=== PATIENT | female | born 1985 | race Caucasian/White ===

== ENCOUNTER → 2019-05-23 | Outpatient (CLI) | payer OTHER | LOC: OD 08:11 | PROVIDERS: ATTEND Nurse Practitioner Primary Care | DX: N97.9 Female infertility, unspecified (principal) | CPT/HCPCS: 36415; 82670; 84144 ==

== ENCOUNTER → 2019-05-27 | Outpatient (CLI) | payer OTHER | LOC: OD 08:55 | PROVIDERS: ATTEND Nurse Practitioner Primary Care | DX: N97.9 Female infertility, unspecified (principal) | CPT/HCPCS: 36415; 82670; 84144 ==